=== PATIENT | female | born 1980 | race African-American/Black ===

== ENCOUNTER 2016-05-26 20:45 | Emergency (ER) | payer BC ==
[~2016-05-26 20:45] MED LIST: FERROUS SULFATE; IRON; TAMIFLU75 M1 PO
[2016-05-26 20:52] LABS: BASOPHIL# 0.1 X10e3 (0-0.3); BASOPHIL% 0.5 % (0-2.5); DIFF IND NO; EOSINOPHIL% 0.3 % (0.0-7.0); HEMATOCRIT 28.7 % (35.0-45.0); HEMOGLOBIN 8.6 gm/dL (12.0-16.0); LYMPHOCYTE# 2.1 X10e3 (1.0-3.5); LYMPHOCYTE% 17.6 % (17.0-45.0); MEAN CELL VOLUME 69.3 FL (83-96); MEAN CORPUSCULAR HEMOGLOBIN 20.7 PG (28-34); MEAN CORPUSCULAR HGB CONC 29.9 g/dL (30-36); MEAN PLATELET VOLUME 8.1 FL (6.5-11.5); MONOCYTE# 0.6 X10e3 (0-1.0); MONOCYTE% 4.9 % (3.0-12.0); NEUTROPHIL# 9.1 X10e3 (1.5-7.1); NEUTROPHIL% 76.7 % (40-75); PLATELET COUNT 802 X10e3 (140-420); RED BLOOD COUNT 4.13 X10e (3.90-5.30); RED CELL DISTRIBUTION WIDTH 19.8 % (11.0-15.5); WHITE BLOOD COUNT 11.9 X10e3 (4.0-10.5)
[2016-05-26 21:07] LABS: BILIRUBIN,TOTAL 0.3 mg/dL (0.2-2.0); BUN/CREATININE RATIO 21.25; CALCIUM SERUM 9.1 mg/dL (8.4-10.2); CREATININE SERUM 0.8 mg/dL (0.6-1.4); GLOM FILT RATE Estimated 109.3 mL/min (>60); POTASSIUM 3.6 mmol/L (3.5-5.1); PROTEIN TOTAL SERUM 8.1 g/dL (6.0-8.3)
[2016-05-26 21:41] LABS: URINE SOURCE CLEAN CATCH
[2016-05-26 21:44] LABS: URINE APPEARANCE HAZY; URINE BILIRUBIN NEG (NEG); URINE BLOOD NEG (NEG); URINE COLOR YELLOW; URINE GLUCOSE NEG (NORM); URINE KETONE NEG (NEG); URINE LEUKOCYTE ESTERASE NEG (NEG); URINE NITRATE NEG (NEG); URINE PH 5.5 (5-8); URINE PROTEIN 1+ (NEG); URINE SPECIFIC GRAVITY >=1.030 (1.003-1.035); URINE UROBILINOGEN 0.2 MG/DL (NORM)
[2016-05-26 21:51] LABS: MICRO INDICATED? YES
[2016-05-26 21:52] LABS: URINE BACTERIA 1+ (NEG); URINE SQUAMOUS EPITHELIAL CELL MANY /[HPF]
[2016-05-26 21:53] LABS: URINE MUCUS PRESENT
== END 2016-05-26 23:12 | disposition home or self-care (01) ==
LOC: SED 20:45
PROVIDERS: Physician Assistant
DX: R11.2 Nausea with vomiting, unspecified (principal); R19.7 Diarrhea, unspecified; D64.9 Anemia, unspecified; Z98.51 Tubal ligation status
CPT/HCPCS: 36415; 80053; 81003; 85025; 96374; 99284; J2405

== ENCOUNTER 2016-06-30 05:15 | Emergency (ER) | payer BC ==
[2016-06-30] MEDS ORDERED: NO MEDICATIONS (05:20)
== END 2016-06-30 06:49 | disposition home or self-care (01) ==
LOC: SED 05:15
DX: T19.2XXA Foreign body in vulva and vagina, initial encounter (principal)
CPT/HCPCS: 99284

== ENCOUNTER 2016-08-19 18:28 | Emergency (ER) | payer BC ==
[~2016-08-19 18:28] MED LIST changes: +NO MEDICATIONS
== END 2016-08-19 20:12 | disposition home or self-care (01) ==
LOC: SED 18:28
DX: J02.0 Streptococcal pharyngitis (principal); F41.9 Anxiety disorder, unspecified
CPT/HCPCS: 87651; 96372; 99283; J0561; J1100